=== PATIENT | female | born 1980 | race Caucasian/White ===

== ENCOUNTER 2020-05-08 21:17 | Emergency (ER) | payer OTHER ==
[2020-05-08] MEDS ORDERED: VENLAFAXINE HC100 MG PO (21:27)
[2020-05-08] MEDS ORDERED: SEROQUEL 2525 MG/TAB PO (21:27)
[2020-05-08] MEDS ORDERED: FLAGYL500 M1 PO (21:28)
[2020-05-08] MEDS ORDERED: CIPRO500 M1 PO (21:28)
[2020-05-08 22:08] LABS: EOS # 0.2 (0.04-0.40); EOS % 1.5 % (1.0-5.0); HEMATOCRIT 38.4 % (37.0-47.0); HEMOGLOBIN 13.3 g/dL (12.5-16.0); LYMPH# 1.5 (1.50-4.00); MEAN CELL VOLUME 87 fl (78-100); MEAN CORPUSCULAR HEMOGLOBIN 30 pg (27-31); MEAN CORPUSCULAR HGB CONC 35 g/dL (33-37); MEAN PLATELET VOLUME 9.3 fl (7.4-10.4); MONO # 1.1 (0.20-0.80); PLATELET COUNT 146 K/mm3 (130-400); RED BLOOD COUNT 4.41 M/mm3 (4.10-5.30); WHITE BLOOD COUNT 11.9 K/mm3 (4.8-10.8)
[2020-05-08 22:16] LABS: ALBUMIN 3.3 g/dL (3.5-5.0)
[2020-05-08 22:18] LABS: TOTAL PROTEIN 5.9 g/dL (6.4-8.3)
[2020-05-08 22:20] LABS: TOTAL BILIRUBIN 1.9 mg/dL (0.2-1.2)
[2020-05-08 22:24] LABS: NEU # 9.1 (1.40-6.50)
[2020-05-08 22:37] LABS: URINE APPEARANCE CLEAR; URINE BILIRUBIN NEGATIVE (NEGATIVE); URINE BLOOD 250 ery/uL (NEGATIVE); URINE COLOR YELLOW; URINE GLUCOSE NEGATIVE (NEGATIVE); URINE KETONE NEGATIVE (NEGATIVE); URINE LEUKOCYTE ESTERASE TRACE (NEGATIVE); URINE NITRATE NEGATIVE (NEGATIVE); URINE PROTEIN(semi-quant) 3+ mg/dL (NEGATIVE); URINE UROBILINOGEN NORMAL (NORMAL)
[2020-05-08] MEDS ORDERED: NORCO 325 MG-51 TA1 PO (22:55)
[2020-05-08 23:02] VITALS: BP 115/66
== END 2020-05-08 23:02 | disposition home or self-care (01) ==
LOC: ED 21:17
PROVIDERS: Family Medicine
DX: K52.9 Noninfective gastroenteritis and colitis, unspecified (principal); F41.9 Anxiety disorder, unspecified; F32.9 Major depressive disorder, single episode, unspecified; F17.290 Nicotine dependence, other tobacco product, uncomplicated; Z88.0 Allergy status to penicillin
CPT/HCPCS: J0595; J1885

== ENCOUNTER 2021-10-24 09:41 | Emergency (ER) | payer OTHER ==
[~2021-10-24 09:41] MED LIST: CIPRO500 M1 PO; FLAGYL500 M1 PO; NORCO 325 MG-51 TA1 PO; SEROQUEL 2525 MG/TAB PO; VENLAFAXINE HC100 MG PO
[2021-10-24] MEDS ORDERED: CELEXA 20MG20 MG/TA1 PO (10:05)
[2021-10-24] MEDS ORDERED: AMBIEN10 MG PO (10:06)
[2021-10-24 11:06] LABS: URINE APPEARANCE HAZY; URINE BILIRUBIN NEGATIVE (NEGATIVE); URINE BLOOD NEGATIVE (NEGATIVE); URINE COLOR YELLOW; URINE GLUCOSE NEGATIVE (NEGATIVE); URINE KETONE NEGATIVE (NEGATIVE); URINE LEUKOCYTE ESTERASE TRACE (NEGATIVE); URINE NITRATE NEGATIVE (NEGATIVE); URINE PROTEIN(semi-quant) NEGATIVE (NEGATIVE); URINE UROBILINOGEN NORMAL (NORMAL); URINE WBC 0-1 /hpf (0-3)
[2021-10-24] MEDS ORDERED: CYCLOBENZAPRINE10 M1 PO (12:22)
[2021-10-24] MEDS ORDERED: NORCO 325 MG-51 TA1 PO (12:22)
[2021-10-24 12:56] VITALS: BP 114/63
== END 2021-10-24 12:57 | disposition home or self-care (01) ==
LOC: ED 09:41
PROVIDERS: Nurse Practitioner
DX: M54.50 Low back pain, unspecified (principal)
CPT/HCPCS: J1885